=== PATIENT | male | born 1980 | race Caucasian/White ===

== ENCOUNTER 2022-12-13 14:18 | Outpatient (REF) | payer MEDICARE, MEDICAID, SELFPAY ==
[2022-12-13 17:14] LABS: MANUAL DIFF FLAG NO
[2022-12-13 17:18] LABS: Basophils Percent Auto 0.4 % (0-2); Eosinophils Absolute Auto 0.1 X10*3/uL (0.0-0.4); Eosinophils Percent Auto 1.4 % (0-4); Hematocrit 43.3 % (42.0-52.0); Hemoglobin 14.5 g/dl (14.0-18.0); Imm Gran Abs Auto 0.01 X10*3/uL (0.00-0.03); Imm Gran Pct Auto 0.1 % (0.0-0.4); Lymphocytes Absolute Auto 3.7 X10*3/uL (1.2-4.9); Lymphocytes Percent Auto 47.1 % (20-40); Mean Corpuscular HGB Conc 33.5 g/dl (31.0-36.0); Mean Corpuscular Hemoglobin 30.8 pg (27.0-33.0); Mean Corpuscular Volume 91.9 fL (80.0-98.0); Mean Platelet Volume 11.1 fL (9.4-12.4); Monocytes Absolute Auto 0.7 X10*3/uL (0.1-1.2); Monocytes Percent Auto 8.8 % (2-11); Neutrophils Absolute Auto 3.3 x10*3/uL (2.0-8.3); Neutrophils Percent Auto 42.2 % (45-73); Platelet Count 370 X10*3/uL (160-400); Red Blood Count 4.71 X10*6/uL (4.60-5.80); Red Cell Distribution Width 12.6 % (11.0-16.0); White Blood Count 7.9 X10*3/uL (4.8-10.8)
[2022-12-13 17:49] LABS: Cholesterol 192 mg/dL (<200); HDL Cholesterol 32 mg/dL (>40); LDL Cholesterol Calculated 106 mg/dL (<100); Triglycerides 273 mg/dL (<150)
[2022-12-13 17:51] LABS: Alanine Aminotransferase 16 U/L (0-40); Albumin Level 4.3 g/dL (3.5-5.0); Alkaline Phosphatase 98 U/L (39-117); Anion Gap 12 (12-20); Aspartate Amino Transferase 20 U/L (5-37); Bilirubin Total 0.4 mg/dL (0.0-1.0); Blood Urea Nitrogen 14 mg/dL (9-16); Calcium 9.9 mg/dL (8.4-10.2); Carbon Dioxide 23 mmol/L (22-29); Chloride 110 mmol/L (96-108); Estimated Glomerular Filt Rate > 60; Glucose Random 85 mg/dL (60-115); Potassium 3.9 mmol/L (3.3-5.1); Sodium 141 mmol/L (135-145); Total Protein 7.4 g/dL (6.5-8.0)
[2022-12-13 20:49] LABS: Reflex LDLD? No
[2022-12-15 12:52] LABS: Absolute CD3 Count 2748 cells/uL (840-3060); Absolute CD4 Count 1413 cells/uL (490-1740); Absolute CD8 Count 1391 cells/uL (180-1170); Absolute Lymphocytes 3709 cells/uL (850-3900); CD4 CD8 Ratio 1.02 (0.86-5.00); Percent CD3 Cells 74 % (57-85); Percent CD4 Cells 38 % (30-61); Percent CD8 Cells 38 % (12-42)
[2022-12-15 23:13] LABS: TS Negative Control Passed; TS Panel A 0; TS Panel B 6; TS Positive Control Passed; TSpotTB Borderline (Negative)
[2022-12-17 09:29] LABS: HIV RNA PCR Qn Copies NOT DETECTED copies/mL (NOT DETECTED); HIV RNA PCR Qn Log Copies NOT DETECTED (NOT DETECTED)
[2022-12-19 18:19] LABS: RPR Rapid Plasma Reagin NON-REACTIVE (NON-REACTIVE)
== END 2022-12-13 14:19 | disposition home or self-care (01) ==
LOC: HO.HHCL 14:18
PROVIDERS: Visit Provider Internal Medicine
DX: B20 Human immunodeficiency virus [HIV] disease (principal)
CPT/HCPCS: 36415; 80053; 80061; 85025; 86359; 86360; 86481; 86592; 87536

== ENCOUNTER 2023-04-18 11:20 | Outpatient (REF) | payer MEDICARE, MEDICAID, SELFPAY | END 2023-04-18 11:21 | disposition home or self-care (01) | LOC: HO.HHCL 11:20 | PROVIDERS: Visit Provider Internal Medicine | DX: Z21 Asymptomatic human immunodeficiency virus [HIV] infection status (principal) | CPT/HCPCS: 36415; 80053; 85025; 86359; 86360; 87536 ==

== ENCOUNTER 2023-06-14 18:19 | Outpatient (REF) | payer MEDICARE, MEDICAID, SELFPAY ==
[2023-06-18 02:28] LABS: C.Trachomatis RNA TMA, Rectal NOT DETECTED; N.Gonorrhoeae RNA TMA, Rectal NOT DETECTED
[2023-06-18 20:19] LABS: C. Trachomatis RNA TMA, Throat NOT DETECTED; N. gonorrhoeae RNA TMA, Throat NOT DETECTED
== END 2023-06-14 18:20 | disposition home or self-care (01) ==
LOC: HO.HHCLNP 18:19
PROVIDERS: Visit Provider Student in an Organized Health Care Education/Training Program
DX: B20 Human immunodeficiency virus [HIV] disease (principal)
CPT/HCPCS: 87491; 87591; 88112

== ENCOUNTER 2023-06-29 12:02 | Outpatient (REF) | payer MEDICARE, MEDICAID, SELFPAY ==
[2023-06-29 13:32] LABS: Hemoglobin 14.6 g/dl (14.0-18.0); Mean Corpuscular HGB Conc 33.2 g/dl (31.0-36.0); Mean Corpuscular Hemoglobin 30.5 pg (27.0-33.0); Mean Corpuscular Volume 91.9 fL (80.0-98.0); Platelet Count 366 X10*3/uL (160-400); Red Blood Count 4.79 X10*6/uL (4.60-5.80); Red Cell Distribution Width 12.9 % (11.0-16.0); White Blood Count 10.3 X10*3/uL (4.8-10.8)
[2023-06-29 13:41] LABS: Estimated Average Glucose 105 mg/dL; Hemoglobin A1c % 5.3 % (<6.0)
[2023-06-29 13:52] LABS: Alanine Aminotransferase 14 U/L (0-40); Albumin Level 4.4 g/dL (3.5-5.0); Alkaline Phosphatase 102 U/L (39-117); Anion Gap 11 (12-20); Aspartate Amino Transferase 18 U/L (5-37); Bilirubin Total 0.4 mg/dL (0.0-1.0); Blood Urea Nitrogen 20 mg/dL (9-16); Calcium 9.5 mg/dL (8.4-10.2); Carbon Dioxide 27 mmol/L (22-29); Chloride 109 mmol/L (96-108); Cholesterol 191 mg/dL (<200); Estimated Glomerular Filt Rate > 60; Glucose Random 98 mg/dL (60-115); HDL Cholesterol 32 mg/dL (>40); LDL Cholesterol Calculated 130 mg/dL (<100); Potassium 4.8 mmol/L (3.3-5.1); Sodium 142 mmol/L (135-145); Total Protein 7.8 g/dL (6.5-8.0); Triglycerides 148 mg/dL (<150)
[2023-06-29 14:08] LABS: TSH reflex Free T4 1.19 uIU/mL (0.32-4.0)
[2023-06-29 17:14] LABS: CT PCR NOT DETECTED (Not Detect.); NG PCR NOT DETECTED (Not Detect.)
[2023-06-30 04:00] LABS: Syphilis Screen Nonreactive (Nonreactive)
[2023-06-30 04:08] LABS: HBS Num1 > 1000.00 mIU/mL (0-7.99); HBc Num1 0.05 S/CO (0.00-0.79); HBsAGNum1 0.43 S/CO (0.00-0.99); Hepatitis B Core Antibody Nonreactive (Nonreactive); Hepatitis B Surface Antigen Negative (Negative); ~Hepatitis B Surface Antibody REACTIVE (Nonreactive)
[2023-07-01 20:48] LABS: TS Negative Control Passed; TS Panel A 0; TS Panel B 3; TS Positive Control Passed; TSpotTB Negative (Negative)
[2023-07-02 13:49] LABS: HCV Log PCR <1.18 NOT DETECTED Log IU/mL (NOT DETECTED); HepC Viral Load <15 NOT DETECTED IU/mL (NOT DETECTED)
== END 2023-06-29 12:03 | disposition home or self-care (01) ==
LOC: HO.HHCL 12:02
PROVIDERS: Visit Provider Student in an Organized Health Care Education/Training Program
DX: Z00.00 Encounter for general adult medical examination without abnormal findings (principal); B20 Human immunodeficiency virus [HIV] disease; Z11.59 Encounter for screening for other viral diseases; Z72.89 Other problems related to lifestyle; Z20.2 Contact with and (suspected) exposure to infections with a predominantly sexual mode of transmission
CPT/HCPCS: 0353U; 36415; 80053; 80061; 83036; 84443; 85027; 86481; 86704; 86706; 86780; 87340; 87522

== ENCOUNTER 2023-09-20 10:33 | Outpatient (REF) | payer MEDICARE, MEDICAID, SELFPAY ==
[2023-09-22 09:58] LABS: HIV RNA PCR Qn Copies 154 copies/mL (NOT DETECTED); HIV RNA PCR Qn Log Copies 2.19 (NOT DETECTED)
[2023-09-24 09:34] LABS: Absolute CD3 Count 2934 cells/uL (840-3060); Absolute CD4 Count 1494 cells/uL (490-1740); Absolute CD8 Count 1522 cells/uL (180-1170); Absolute Lymphocytes 3961 cells/uL (850-3900); CD4 CD8 Ratio 0.98 (0.86-5.00); Percent CD3 Cells 74 % (57-85); Percent CD4 Cells 38 % (30-61); Percent CD8 Cells 38 % (12-42)
== END 2023-09-20 10:34 | disposition home or self-care (01) ==
LOC: HO.HHCL 10:33
PROVIDERS: Visit Provider Internal Medicine
DX: Z21 Asymptomatic human immunodeficiency virus [HIV] infection status (principal)
CPT/HCPCS: 36415; 86359; 86360; 87536

== ENCOUNTER 2023-10-26 07:01 | Outpatient (REF) | payer MEDICARE, MEDICAID, SELFPAY ==
--- NOTE | ~2023-10-26 | CT_ITS ---
CT HEAD WITHOUT IV CONTRAST INDICATION: Seizure. Traumatic brain injury. COMPARISON: None available. TECHNIQUE: Multidetector CT acquisitions of the head was obtained without IV contrast. This CT examination was performed using dose optimization techniques as appropriate, variously including the following: *Automated exposure control *Adjustment of mA and/or kV according to patient size (this includes techniques or standardized protocols for targeted exams where dose is matched to indication/reason for exam; i.e. extremities or head) *Use of iterative reconstruction technique FINDINGS: There are postoperative changes following left frontal craniectomy and probable cranioplasty with a heterogeneous density lentiform shaped presumed flap that does exhibit locules of gas which should be clinically correlated and compared to outside imaging if available. This could alternatively reflect an extra-axial collection containing gas spanning the craniectomy site. Chronic appearing encephalomalacia and gliosis within the left frontal lobe with adjacent ex vacuo dilatation of the left frontal horn. There is no intracranial hemorrhage, hydrocephalus, extra-axial surface collection, midline shift, or other herniation pattern. Nugent to white matter differentiation is diffusely maintained without evidence of an evolved acute territorial infarct. The basilar cisterns are preserved. No significant soft tissue abnormality. No acute osseous abnormality. The paranasal sinuses and the mastoid air cells are well aerated. There is a small 0.8 cm probable osteoma projecting laterally from the outer cortical table of the right lateral calvarium on image [address]/CT head/brain wo IV con IMPRESSION: * There are postoperative changes following left frontal craniectomy and probable cranioplasty with a heterogeneous density lentiform shaped presumed flap that does exhibit locules of gas which should be clinically correlated and compared to outside imaging if available to exclude flap resorption/infection. This could alternatively reflect an extra-axial collection containing gas spanning the craniectomy site. * Chronic appearing encephalomalacia and gliosis within the left frontal lobe with adjacent ex vacuo dilatation of the left frontal horn. In light of the reported history of seizure, MRI would be more sensitive in assessing for any chronic hemosiderin staining. * There is a small 0.8 cm probable osteoma projecting laterally from the outer cortical table of the right lateral calvarium on image 30 of series 5.
== END 2023-10-26 07:02 | disposition home or self-care (01) ==
LOC: HO.CT 07:01
PROVIDERS: Visit Provider Psychiatry & Neurology Neurology
DX: R56.9 Unspecified convulsions (principal)
CPT/HCPCS: 70450

== ENCOUNTER 2024-02-04 12:29 | Outpatient (REF) | payer MEDICARE, MEDICAID, SELFPAY ==
[2024-02-04 13:23] LABS: MANUAL DIFF FLAG NO
[2024-02-04 13:34] LABS: Basophils Absolute Auto 0.1 X10*3/uL (0.0-0.2); Basophils Percent Auto 0.7 % (0-2); Eosinophils Absolute Auto 0.3 X10*3/uL (0.0-0.4); Eosinophils Percent Auto 3.4 % (0-4); Hematocrit 42.9 % (42.0-52.0); Hemoglobin 14.5 g/dl (14.0-18.0); Imm Gran Abs Auto 0.04 X10*3/uL (0.00-0.03); Imm Gran Pct Auto 0.5 % (0.0-0.4); Lymphocytes Absolute Auto 2.7 X10*3/uL (1.2-4.9); Lymphocytes Percent Auto 33.3 % (20-40); Mean Corpuscular HGB Conc 33.8 g/dl (31.0-36.0); Mean Corpuscular Hemoglobin 31.5 pg (27.0-33.0); Mean Corpuscular Volume 93.3 fL (80.0-98.0); Monocytes Absolute Auto 0.7 X10*3/uL (0.1-1.2); Monocytes Percent Auto 8.2 % (2-11); Neutrophils Absolute Auto 4.4 x10*3/uL (2.0-8.3); Neutrophils Percent Auto 53.9 % (45-73); Platelet Count 339 X10*3/uL (160-400); Red Cell Distribution Width 12.7 % (11.0-16.0); White Blood Count 8.2 X10*3/uL (4.8-10.8)
[2024-02-04 15:12] LABS: Alanine Aminotransferase 19 U/L (0-40); Albumin Level 4.4 g/dL (3.5-5.0); Alkaline Phosphatase 94 U/L (39-117); Anion Gap 11 (12-20); Aspartate Amino Transferase 22 U/L (5-37); Bilirubin Total 0.6 mg/dL (0.0-1.0); Blood Urea Nitrogen 12 mg/dL (9-16); Carbon Dioxide 27 mmol/L (22-29); Chloride 107 mmol/L (96-108); Estimated Glomerular Filt Rate > 60; Glucose Random 95 mg/dL (60-115); Potassium 4.1 mmol/L (3.3-5.1); Sodium 141 mmol/L (135-145); Total Protein 7.4 g/dL (6.5-8.0)
[2024-02-05 13:12] LABS: HIV RNA PCR Qn Copies NOT DETECTED copies/mL (NOT DETECTED); HIV RNA PCR Qn Log Copies NOT DETECTED (NOT DETECTED)
[2024-02-07 09:13] LABS: Levetiracetam Keppra 10.5 mcg/mL (6.0-46.0)
== END 2024-02-04 12:30 | disposition home or self-care (01) ==
LOC: HO.HHCL 12:29
PROVIDERS: Visit Provider Student in an Organized Health Care Education/Training Program
DX: R56.9 Unspecified convulsions (principal); Z21 Asymptomatic human immunodeficiency virus [HIV] infection status
CPT/HCPCS: 36415; 80053; 80177; 85025; 87536

== ENCOUNTER 2024-08-01 13:32 | Outpatient (REF) | payer MEDICARE, MEDICAID, SELFPAY ==
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
[2024-08-01 16:11] LABS: MANUAL DIFF FLAG NO
[2024-08-01 16:25] LABS: Basophils Percent Auto 0.6 % (0-2); Eosinophils Absolute Auto 0.1 X10*3/uL (0.0-0.4); Eosinophils Percent Auto 0.9 % (0-4); Hematocrit 41.3 % (42.0-52.0); Imm Gran Abs Auto 0.01 X10*3/uL (0.00-0.03); Imm Gran Pct Auto 0.1 % (0.0-0.4); Lymphocytes Absolute Auto 2.8 X10*3/uL (1.2-4.9); Lymphocytes Percent Auto 39.9 % (20-40); Mean Corpuscular HGB Conc 33.9 g/dl (31.0-36.0); Mean Corpuscular Hemoglobin 31.6 pg (27.0-33.0); Mean Corpuscular Volume 93.2 fL (80.0-98.0); Mean Platelet Volume 11.5 fL (9.4-12.4); Monocytes Absolute Auto 0.6 X10*3/uL (0.1-1.2); Neutrophils Absolute Auto 3.5 x10*3/uL (2.0-8.3); Neutrophils Percent Auto 50.5 % (45-73); Platelet Count 316 X10*3/uL (160-400); Red Blood Count 4.43 X10*6/uL (4.60-5.80); Red Cell Distribution Width 12.3 % (11.0-16.0)
[2024-08-01 16:50] LABS: Alanine Aminotransferase 13 U/L (0-40); Anion Gap 10 (12-20); Aspartate Amino Transferase 38 U/L (5-37); Bilirubin Direct 0.1 mg/dL (0.0-0.5); Bilirubin Total 0.4 mg/dL (0.0-1.0); Blood Urea Nitrogen 13 mg/dL (9-16); Carbon Dioxide 24 mmol/L (22-29); Chloride 110 mmol/L (96-108); Cholesterol 166 mg/dL (<200); Estimated Glomerular Filt Rate > 60; Glucose Random 102 mg/dL (60-115); HDL Cholesterol 34 mg/dL (>40); LDL Cholesterol Calculated 97 mg/dL (<100); Potassium 4.1 mmol/L (3.3-5.1); Sodium 140 mmol/L (135-145); Total Protein 6.8 g/dL (6.5-8.0); Triglycerides 179 mg/dL (<150)
[2024-08-01 17:03] LABS: Reflex LDLD? No
[2024-08-01 19:09] LABS: Alkaline Phosphatase 86 U/L (39-117)
[2024-08-02 02:43] LABS: CT PCR NOT DETECTED (Not Detect.); NG PCR NOT DETECTED (Not Detect.)
[2024-08-02 08:07] LABS: Syphilis Screen Nonreactive (Nonreactive)
[2024-08-02 08:29] LABS: HBS Num1 > 1000.00 mIU/mL (0-7.99); HBc Num1 0.05 S/CO (0.00-0.79); HBsAGNum1 0.33 S/CO (0.00-0.99); Hepatitis B Core Antibody Nonreactive (Nonreactive); Hepatitis B Surface Antigen Negative (Negative); ~HepC Num1 6.23 S/CO (0.00-0.79); ~Hepatitis B Surface Antibody REACTIVE (Nonreactive); ~Hepatitis C Antibody Reactive (Nonreactive)
[2024-08-02 20:18] LABS: HIV RNA PCR Qn Copies 85 copies/mL (NOT DETECTED); HIV RNA PCR Qn Log Copies 1.93 (NOT DETECTED)
[2024-08-04 16:13] LABS: TS Negative Control Passed; TS Panel A 0; TS Panel B 0; TS Positive Control Passed; TSpotTB Negative (Negative)
[2024-08-05 15:03] LABS: HCV Log PCR <1.18 NOT DETECTED Log IU/mL (NOT DETECTED); HepC Viral Load <15 NOT DETECTED IU/mL (NOT DETECTED)
[2024-08-06 16:08] LABS: Absolute CD3 Count 2264 cells/uL (840-3060); Absolute CD4 Count 1244 cells/uL (490-1740); Absolute CD8 Count 1084 cells/uL (180-1170); Absolute Lymphocytes 2947 cells/uL (850-3900); CD4 CD8 Ratio 1.15 (0.86-5.00); Percent CD3 Cells 77 % (57-85); Percent CD4 Cells 42 % (30-61); Percent CD8 Cells 37 % (12-42)
== END 2024-08-01 13:33 | disposition home or self-care (01) ==
LOC: HO.HHCL 13:32
PROVIDERS: Visit Provider Student in an Organized Health Care Education/Training Program
DX: Z21 Asymptomatic human immunodeficiency virus [HIV] infection status (principal); Z20.5 Contact with and (suspected) exposure to viral hepatitis; Z20.828 Contact with and (suspected) exposure to other viral communicable diseases; Z13.6 Encounter for screening for cardiovascular disorders
CPT/HCPCS: 36415; 80053; 80061; 82248; 82550; 85025; 86359; 86360; 86481; 86704; 86706; 86780; 86803; 87340; 87491; 87522; 87536; 87591

== ENCOUNTER 2024-12-03 13:46 | Outpatient (REF) | payer MEDICARE, MEDICAID, SELFPAY ==
--- OUTSIDE RECORDS SUMMARY | 2024-12-03 14:44 | XMS_ITS | Clinical Summary ---
Author Organization [facility] Central Admin istrative Offices Address [address] [place] [address] Phone Care Team Providers Care Public Housing Interviewer Name Role Phone Ivelisse Waetrman NP Primary Care Provider [phone] Allergies No known active allergies Medications phenytoin [...] for greater than 3 minutes. HIV infection ([facility] V24, [facility] V28) Assessment & Plan (12/03/2020 11:36 AM EDT): Patient presented earlier this week to establish care with new PCP reporting promiscuous behaviors requesting HIV testing. Reports unprotected sex with multiple males over the past few months. Patient originates from [place] and moved to [facility] approximately 1 month ago. HIV testing results critical values last evening on-call service notified, on-call provider contacted PCP to relay results to patient directly. Patient was contacted via telephone advised to present office. He is accompanied today by both his brother and [id number]. Patient advised of lab results and became notably emotional. Patient remained in office 60+ minutes while PCPs office contacted infectious disease at [facility] to arrange prompt evaluation. Arrival time 1:30 [...] Medical History Medical History Date Comments Seizures ([facility] V24, [facility] V28) Family History Medical History Relation Name [...] money to get more. Never true 12/01/2020 [facility] Answer Date Re corded How [...] 87 08/23/2021 1:30 PM EDT Temperature 36.5 C (97.7 F) 08/23/2021 1:30 PM EDT Respiratory Rate - - Oxygen Saturation 98% [...] - 19+ 3-dose series) 2001 Pneumococcal Vaccine: Pediat rics (0 to 5 Years) and At-Risk Patients (6 to 49 Years) (1 of 2 - PCV) 2001 Cholesterol Screening (Lipid Panel) 11/10/2020 Medicare Annual Wellness Visit 11/10/2020 Social Influencers of Health Screening 12/01/2021 12/01/2020 Depression Screening 04/16/2024 Influenza Vaccine (#1) 2024 02/22/2021 DTaP,Tdap,and Td Vaccines (2 - [...] to complete this topic RSV Immunization Patients Un tonya 20 months Aged Out No longer eligible [...] LAB CHEMISTRY METHOD 12/02/2020 7:14 PM EDT [facility] Comment: 1. These results were obtained with [employer] HCV assay. Results obtained from other manufacturers' methods may not be used interchangeably. March 2008. 2. POSITIVE / REACTIVE Reported to the [facility]. Quantitative HCV RNA by PCR will follow. 3. LOW POSITIVE/LOW REACTIVITY Confirmation by Quantitative HCV RNA by PCR will follow. 4. NEGATIVE / NONREACTIVE result is normal. 5. [facility] requires all positive results to include an ALT. This test will reflex. No charge. Blood Venous blood specimen / Unknown Venipuncture / Unknown 12/02/2020 9:56 AM EDT 12/02/2020 9:56 AM EDT us Ivelisse Waterman NP LAB BLOOD ORDERABLES Final Resu lt [facility] [address] [place] [address] from Last 3 Months or Most Recently Relevant to Health Maintenance Insurance [place] - [place] on file MEDICARE Care Teams Public Housing Interviewer Relationship Specialty Start Date End Date Ivelisse Waterman NP PCP - General Internal Medicine 12/01/20
[2024-12-03 17:22] LABS: MANUAL DIFF FLAG NO
[2024-12-03 17:42] LABS: Hematocrit 42.8 % (42.0-52.0); Hemoglobin 14.3 g/dl (14.0-18.0); Imm Gran Abs Auto 0.01 X10*3/uL (0.00-0.03); Imm Gran Pct Auto 0.2 % (0.0-0.4); Lymphocytes Absolute Auto 2.5 X10*3/uL (1.2-4.9); Mean Corpuscular HGB Conc 33.4 g/dl (31.0-36.0); Mean Corpuscular Hemoglobin 31.4 pg (27.0-33.0); Mean Corpuscular Volume 94.1 fL (80.0-98.0); NRBC Abs Auto 0.000 X10*3/uL (0.0-0.012); NRBC Pct Auto 0.0 /100WBC (0.0-0.2); Platelet Count 307 X10*3/uL (160-400); Red Blood Count 4.55 X10*6/uL (4.60-5.80); White Blood Count 6.5 X10*3/uL (4.8-10.8)
[2024-12-03 17:47] LABS: Hemoglobin A1C 142.5326 umol/L; Total Hemoglobin (HGBA1C) 3784.5359 umol/L
[2024-12-03 18:02] LABS: Alanine Aminotransferase 13 U/L (0-40); Albumin Level 4.2 g/dL (3.5-5.0); Alkaline Phosphatase 84 U/L (39-117); Anion Gap 12 (12-20); Aspartate Amino Transferase 24 U/L (5-37); Blood Urea Nitrogen 11 mg/dL (9-16); Calcium 9.0 mg/dL (8.4-10.2); Carbon Dioxide 24 mmol/L (22-29); Chloride 109 mmol/L (96-108); Estimated Glomerular Filt Rate > 60; Potassium 3.8 mmol/L (3.3-5.1); Sodium 141 mmol/L (135-145); Total Protein 6.7 g/dL (6.5-8.0)
[2024-12-04 05:58] LABS: Rubeola IgG (Measles) <13.50 AU/mL
[2024-12-05 07:49] LABS: ~Hepatitis A Antibody IgG 0.30 S/CO (0.00-0.99)
[2024-12-05 13:49] LABS: HIV RNA PCR Qn Copies 224 copies/mL (NOT DETECTED); HIV RNA PCR Qn Log Copies 2.35 (NOT DETECTED)
[2024-12-07 16:59] LABS: Glucose-6-Phosphate Dehydrogen 14.5 U/g Hgb (7.0-20.5)
== END 2024-12-03 13:47 | disposition home or self-care (01) ==
LOC: HO.HHCL 13:46
PROVIDERS: PCP Family Medicine; Visit Provider Student in an Organized Health Care Education/Training Program
DX: Z01.84 Encounter for antibody response examination (principal); Z11.59 Encounter for screening for other viral diseases; Z21 Asymptomatic human immunodeficiency virus [HIV] infection status; Z79.899 Other long term (current) drug therapy
CPT/HCPCS: 36415; 80053; 82955; 83036; 85025; 86708; 86735; 86762; 86765; 86787; 87536

== ENCOUNTER 2025-02-16 13:46 | Outpatient (REF) | payer MEDICARE, MEDICAID, SELFPAY ==
[2025-02-16 16:09] LABS: MANUAL DIFF FLAG NO
[2025-02-16 16:22] LABS: Hematocrit 46.1 % (42.0-52.0); Hemoglobin 15.4 g/dl (14.0-18.0); Imm Gran Abs Auto 0.02 X10*3/uL (0.00-0.03); Imm Gran Pct Auto 0.2 % (0.0-0.4); Lymphocytes Absolute Auto 2.6 X10*3/uL (1.2-4.9); Mean Corpuscular HGB Conc 33.4 g/dl (31.0-36.0); Mean Corpuscular Hemoglobin 31.3 pg (27.0-33.0); Mean Corpuscular Volume 93.7 fL (80.0-98.0); NRBC Abs Auto 0.000 X10*3/uL (0.0-0.012); NRBC Pct Auto 0.0 /100WBC (0.0-0.2); Platelet Count 380 X10*3/uL (160-400); Red Blood Count 4.92 X10*6/uL (4.60-5.80); White Blood Count 8.7 X10*3/uL (4.8-10.8)
[2025-02-16 16:35] LABS: Alanine Aminotransferase 13 U/L (0-40); Albumin Level 4.6 g/dL (3.5-5.0); Alkaline Phosphatase 95 U/L (39-117); Anion Gap 10 (12-20); Aspartate Amino Transferase 24 U/L (5-37); Blood Urea Nitrogen 13 mg/dL (9-16); Calcium 9.2 mg/dL (8.4-10.2); Carbon Dioxide 27 mmol/L (22-29); Chloride 108 mmol/L (96-108); Estimated Glomerular Filt Rate > 60; Potassium 3.9 mmol/L (3.3-5.1); Sodium 141 mmol/L (135-145); Total Protein 7.4 g/dL (6.5-8.0)
[2025-02-17 15:08] LABS: HIV RNA PCR Qn Copies 225 copies/mL (NOT DETECTED); HIV RNA PCR Qn Log Copies 2.35 (NOT DETECTED)
[2025-02-21 14:59] LABS: Absolute CD3 Count 1760 cells/uL (840-3060); Absolute CD8 Count 754 cells/uL (180-1170); Percent CD3 Cells 71 % (57-85); Percent CD8 Cells 30 % (12-42)
[2025-02-24 23:08] LABS: HIV 1 Integrase Proviral DNA DETECTED; HIV 1 PR RT Proviral DNA DETECTED
== END 2025-02-16 13:47 | disposition home or self-care (01) ==
LOC: HO.HHCL 13:46
PROVIDERS: PCP Student in an Organized Health Care Education/Training Program; Visit Provider Student in an Organized Health Care Education/Training Program
DX: B20 Human immunodeficiency virus [HIV] disease (principal)
CPT/HCPCS: 36415; 80053; 85025; 86359; 86360; 87536; 87900; 87901; 87906